=== PATIENT | male | born 1965 | race Caucasian/White ===

== ENCOUNTER 2018-02-07 06:42 | Day surgery (SDC) | payer MEDICARE, OTHER ==
[2018-02-07] MEDS ORDERED: Lactated Ringers 1,000 ML IV SCH (06:45)
[2018-02-07] MEDS ORDERED: Midazolam 1 MG/ML 2 ML SDV IV ONE (08:00)
[2018-02-07] MEDS ORDERED: Propofol 200 MG/20 ML SDV IV ONE (08:00)
--- NOTE | 2018-02-07 08:54 | PCM.OPNOTE ---
- General Post-Op/Procedure Note Date of Surgery/Procedure: 02/07/18 Operative Procedure(s): c scope with bx Findings: 14 colon polyp ascending to sigmoid colon largest number is 6 in ascending colon largest polyp transverse colon Pre Op Diagnosis: occult blood in stool Post-Op Diagnosis: 14 colon polyp ascending to sigmoid colon. largest number is 6 in ascending colon. largest polyp transverse colon Anesthesia Technique: MAC Primary Surgeon: Pillo Varghese Anesthesia Provider: Codey Ventura Pathology: 14 colon polyp ascending to sigmoid colon largest number is 6 in ascending colon largest polyp transverse colon Complications: None Condition: Good Free Text/Narrative:: see dictatin #[id number]
--- NOTE | 2018-02-07 09:46 | OR ---
DATE OF OPERATION: 02/07/2018 SURGEON: Pillo Varghese MD PROCEDURES PERFORMED: Colonoscopy with hot loop and cold forceps biopsy. PREOPERATIVE DIAGNOSES: 1. Positive FIT exam. 2. History of diarrhea. POSTOPERATIVE DIAGNOSES: 14 colon polyps; 7 of the ascending colon, 3 of the transverse colon, 3 of the descending colon, and 1 of the sigmoid. INDICATIONS FOR PROCEDURE: The patient presents with the above-mentioned complaints. He was offered and accepted colonoscopy. DESCRIPTION OF PROCEDURE: After an excellent IV sedation was administered, digital rectal exam was performed. No marked abnormality was noted. The flexible colonoscope was inserted and advanced to the cecum. Prep was excellent. The following findings were noted. Ascending colon, multiple colon polyps, biopsied with the hot loop snare and cold forceps, and submitted in one container. Transverse colon, multiple colon polyps, the largest being a large sessile approximately 1.5 cm in size. These were all biopsied and submitted in one container. Descending colon, multiple colon polyps, biopsied and sent in one container. Sigmoid colon polyps, biopsied and sent in one container. The rectum was unremarkable. The colon was deflated as the scope was removed. The patient tolerated the procedure well and was taken to the recovery room in a good condition. /[id number] /MODL
== END 2018-02-07 09:45 | disposition home or self-care (01) ==
LOC: FB.SDS 06:42
PROVIDERS: ATTEND Surgery
DX: R19.5 Other fecal abnormalities (principal); K52.9 Noninfective gastroenteritis and colitis, unspecified; D12.2 Benign neoplasm of ascending colon; D12.4 Benign neoplasm of descending colon; D12.3 Benign neoplasm of transverse colon; K63.5 Polyp of colon; I11.0 Hypertensive heart disease with heart failure; I50.9 Heart failure, unspecified; J44.9 Chronic obstructive pulmonary disease, unspecified; E11.9 Type 2 diabetes mellitus without complications; E66.9 Obesity, unspecified; Z68.42 Body mass index [BMI] 45.0-49.9, adult; F17.210 Nicotine dependence, cigarettes, uncomplicated; N17.9 Acute kidney failure, unspecified; F32.9 Major depressive disorder, single episode, unspecified; Z83.71 Family history of colonic polyps; Z79.899 Other long term (current) drug therapy; I73.00 Raynaud's syndrome without gangrene; G60.9 Hereditary and idiopathic neuropathy, unspecified; G47.33 Obstructive sleep apnea (adult) (pediatric); Z91.040 Latex allergy status; Z86.73 Personal history of transient ischemic attack (TIA), and cerebral infarction without residual deficits; Z88.8 Allergy status to other drugs, medicaments and biological substances
CPT/HCPCS: 00811-QZ; 88305; J2250; J2704; J7120

== ENCOUNTER 2020-04-23 14:41 | Inpatient (IN) | payer MEDICARE, OTHER ==
[2020-04-23] MEDS ORDERED: Sodium Chloride 0.9% 10 ML Syringe FLUSH PRN (16:01)
[2020-04-23] MEDS: Sodium Chloride 0.9% 1,000 ML IV SCH (16:55)
[2020-04-23] MEDS: Nicotine 21 MG/24 Hr Patch TRDERM SCH (16:55)
[2020-04-23] MEDS ORDERED: 50% Dextrose in Water 50 ML Syringe IVPUSH ONE ×2 (17:18→22:14)
[2020-04-23] MEDS ORDERED: Albuterol 0.083% 2.5 MG/3 ML Neb Soln NEB ONE (17:18)
[2020-04-23] MEDS ORDERED: Calcium Gluconate 10% 1 GM/10 ML SDV IVPUSH ONE (17:18)
[2020-04-23] MEDS ORDERED: Insulin Lispro 100 Unit/ML 3 ML KwikPen SUBCUT ONE ×3 (17:18→22:18)
[2020-04-23] MEDS ORDERED: Triamcinolone Acetonide 0.1% Crm 15 GM Tube TOP PRN (17:20)
[2020-04-23] MEDS ORDERED: Albuterol 8 GM Inhaler INH PRN (17:20)
--- NOTE | 2020-04-23 17:31 | PCM.HP.2 ---
H&P History of Present Illness - General Date of Service: 04/23/20 Admit Problem/Dx: Admission Diagnosis/Problem Admission Diagnosis/Problem Dyspnea Source of Information: Patient, Old Records History Limitations: Reports: No Limitations - History of Present Illness Initial Comments - Free Text/Narative: Yeison is a 54-year-old male was admitted directly from the ambulatory clinic. He was seen complaining of chronic back pain but also admitted to to shortness of breath on mild exertion and nonspecific chest pain intermittently over the last few months. He was thus admitted with suspicion for dehydration,and work up of the exertional chest pain. He does have a history of hypertension, obesity, COPD (probable), tobacco abuse major depression and obstructive sleep apnea on been poorly controlled. He denies fever chills and does not endorse any cough. He takes diuretics, but had an echocardiogram in 2019 that showed a normal ejection fraction and regional wall movements. Lower Back Pain Score (Numeric/FACES): 8 - Related Data Allergies/Adverse Reactions: Allergies Allergy/AdvReac Type Severity Reaction Status Date / Time latex Allergy Hives Verified 04/23/20 15:45 adhesive AdvReac Rash Verified 04/23/20 15:45 naproxen [From Aleve] AdvReac Other Verified 04/23/20 15:45 sertraline [From Zoloft] AdvReac Headache Verified 04/23/20 15:45 Home Medications: Home Meds Albuterol [Proventil HFA] 2 puff INH Q4H PRN 02/06/18 [History] Allopurinol [Zyloprim] 400 mg PO DAILY 02/06/18 [History] Celecoxib [CeleBREX] 200 mg PO DAILY 02/06/18 [History] Cranberry Fruit Extract [Cranberry] 3,500 mg PO BID 02/06/18 [History] Furosemide [Lasix] 40 mg PO BID 02/06/18 [History] Gabapentin [Neurontin] 1,200 mg PO BID 02/06/18 [History] Hydrocodone/Acetaminophen [Mora 10-325 Tablet] 1.5 tab PO Q6H PRN 02/06/18 [History] Metoprolol Tartrate [Lopressor] 100 mg PO BID 02/06/18 [History] Spironolactone [Aldactone] 25 mg PO DAILY 02/06/18 [History] Triamcinolone Acetonide [Kenalog 0.1% Crm] 1 applic TOP TID PRN 02/06/18 [History] buPROPion HCL [Wellbutrin Xl] 300 mg PO DAILY PRN 02/06/18 [History] traZODone 200 mg PO DAILY 02/06/18 [History] amLODIPine [Norvasc] 5 mg PO DAILY@12904/23/20 [History] lisinopriL [Lisinopril] 40 mg PO DAILY@12904/23/20 [History] Past Medical History HEENT History: Reports: Impaired Vision Cardiovascular History: Reports: Hypertension, SOB on Exertion Other Cardiovascular History: RAYNAUDS, EDEMA Respiratory History: Reports: Asthma, COPD, Sleep Apnea Other Respiratory History: CHRONIC AIRWAY OBSTRUCTION, TOBACCO USER Gastrointestinal History: Reports: GERD Genitourinary History: Reports: Renal Disease MATHEMATICAL PHYSICIST History: Reports: None Musculoskeletal History: Reports: Arthritis, Back Pain, Chronic Neurological History: Reports: None Psychiatric History: Reports: Depression Endocrine/Metabolic History: Reports: Obesity/BMI 30+ Hematologic History: Reports: None Immunologic History: Reports: None Oncologic (Cancer) History: Reports: None Dermatologic History: Reports: None - Past Surgical History HEENT Surgical History: Reports: Tonsillectomy GI Surgical History: Reports: Colonoscopy, Hernia Repair/Other Musculoskeletal Surgical History: Reports: Arthroscopic Procedure, Knee Replacement Social & Family History - Family History Family Medical History: Noncontributory - Tobacco Use Smoking Status *Q: Current Every Day Smoker Years of Tobacco use: 38 Packs/Tins Daily: 1.5 - Caffeine Use Caffeine Use: Reports: Coffee, Soda - Recreational Drug Use Recreational Drug Use: No H&P Review of Systems - Review of Systems: Review Of Systems: Comprehensive ROS is negative, except as noted in HPI. Exam - Exam Exam: See Below - Vital Signs Vital Signs: Last Vital Signs Temp 97.5 F 04/23/20 16:01 Pulse 105 H 04/23/20 16:01 Resp 22 H 04/23/20 16:01 BP 98/66 04/23/20 16:01 Pulse Ox 94 L 04/23/20 16:01 Weight: 147.009 kg - Exam General: Alert, Oriented, 4 HEENT: PERRLA, Hearing Intact, Mucosa Moist & [place], Nares Patent, Normal Nasal Septum, Posterior Pharynx Clear, Conjunctiva Clear, EOMI, EACs Clear, TMs Clear Neck: Supple, Trachea Midline, 2 Lungs: Clear to Auscultation, Normal Respiratory Effort Cardiovascular: Regular Rate, Regular Rhythm GI/Abdominal Exam: Distended (Male) Exam: Deferred Rectal (Males) Exam: Deferred Back Exam: Normal Inspection, Full Range of Motion, NT Extremities: Normal Inspection, Normal Range of Motion, Non-Tender, No Pedal Edema, Normal Capillary Refill Skin: Warm, Dry, Intact Neurological: Cranial Nerves Intact, Reflexes Equal Bilateral Neuro Extensive - Mental Status: Alert, Oriented x3, Normal Mood/Affect, Normal Cognition Neuro Extensive - Motor, Sensory, Reflexes: CN II-XII Intact, Normal Gait, Normal Reflexes Psychiatric: Alert, Normal Affect, Normal Mood - Patient Data Lab Results Last 24 hrs: Laboratory Results - last 24 hr 04/23/20 04/23/20 04/23/20 Range/Units 16:15 16:15 16:15 WBC 11.5 (4.5-12.0) X10-3/uL RBC 4.51 (4.30-5.75) x10(6)uL Hgb 14.2 (13.5-17.8) g/dL Hct 43.5 (30.0-51.3) % MCV 96.5 H (80-96) fL MCH 31.4 (27.7-33.6) pg MCHC 32.6 (32.2-35.4) g/dL RDW 12.9 (11.5-15.5) % Plt Count 229 (125-369) X10(3)uL MPV 10.5 H (7.4-10.4) fL Neut % (Auto) 63.4 (46-82) % Lymph % (Auto) 26.2 (13-37) % [place] % (Auto) 7.7 (4-12) % Eos % (Auto) 2 (1.0-5.0) % Baso % (Auto) 1 (0-2) % Neut # (Auto) 7.2 (1.6-8.3) # Lymph # (Auto) 3.0 (0.6-5.0) # [place] # (Auto) 0.9 (0.0-1.3) # Eos # (Auto) 0.3 (0.0-0.8) # Baso # (Auto) 0.1 (0.0-0.2) # D-Dimer, Quantitative (0.0-0.59) mg/LFEU Sodium 134 L (135-145) mmol/L Potassium 6.7 H* (3.5-5.3) mmol/L Chloride 103 (100-110) mmol/L Carbon Dioxide 21 (21-32) mmol/L BUN 91 H (7-18) mg/dL Creatinine 2.7 H* (0.70-1.30) mg/dL Est Cr Clr Drug Dosing 31.28 mL/min Estimated GFR (MDRD) 25 L (>60) BUN/Creatinine Ratio 33.7 H (9-20) Glucose 113 (80-116) mg/dL Calcium 8.4 L (8.6-10.2) mg/dL Total Bilirubin 0.3 (0.1-1.3) mg/dL AST 28 H (5-25) IU/L ALT 36 (12-36) U/L Alkaline Phosphatase 91 (56-112) IU/L Troponin I 7.2 (4.0-60.3) pg/mL Total Protein 7.9 (6.0-8.0) g/dL Albumin 3.9 (3.5-5.2) g/dL Globulin 4.0 g/dL Albumin/Globulin Ratio 1.0 Urine Color (YELLOW) Urine Appearance (CLEAR) Urine pH (5.0-6.5) Ur Specific [place] (1.010-1.025) Urine Protein (NEGATIVE) mg/dL Urine Glucose (UA) (NORMAL) mg/dL Urine Ketones (NEGATIVE) mg/dL Urine Occult Blood (NEGATIVE) Urine Nitrite (NEGATIVE) Urine Bilirubin (NEGATIVE) Urine Urobilinogen (NEGATIVE) mg/dL Ur Leukocyte Esterase (NEGATIVE) Urine RBC (0-5) Urine WBC (0-5) Ur Squamous Epith Cells (NS,R,O) Amorphous Sediment Urine Bacteria (NS) 04/23/20 04/23/20 Range/Units 16:15 16:20 WBC (4.5-12.0) X10-3/uL RBC (4.30-5.75) x10(6)uL Hgb (13.5-17.8) g/dL Hct (30.0-51.3) % MCV (80-96) fL MCH (27.7-33.6) pg MCHC (32.2-35.4) g/dL RDW (11.5-15.5) % Plt Count (125-369) X10(3)uL MPV (7.4-10.4) fL Neut % (Auto) (46-82) % Lymph % (Auto) (13-37) % [place] % (Auto) (4-12) % Eos % (Auto) (1.0-5.0) % Baso % (Auto) (0-2) % Neut # (Auto) (1.6-8.3) # Lymph # (Auto) (0.6-5.0) # [place] # (Auto) (0.0-1.3) # Eos # (Auto) (0.0-0.8) # Baso # (Auto) (0.0-0.2) # D-Dimer, Quantitative 0.34 (0.0-0.59) mg/LFEU Sodium (135-145) mmol/L Potassium (3.5-5.3) mmol/L Chloride (100-110) mmol/L Carbon Dioxide (21-32) mmol/L BUN (7-18) mg/dL Creatinine (0.70-1.30) mg/dL Est Cr Clr Drug Dosing mL/min Estimated GFR (MDRD) (>60) BUN/Creatinine Ratio (9-20) Glucose (80-116) mg/dL Calcium (8.6-10.2) mg/dL Total Bilirubin (0.1-1.3) mg/dL AST (5-25) IU/L ALT (12-36) U/L Alkaline Phosphatase (56-112) IU/L Troponin I (4.0-60.3) pg/mL Total Protein (6.0-8.0) g/dL Albumin (3.5-5.2) g/dL Globulin g/dL Albumin/Globulin Ratio Urine Color Yellow (YELLOW) Urine Appearance Clear (CLEAR) Urine pH 5.0 (5.0-6.5) Ur Specific [place] 1.015 (1.010-1.025) Urine Protein Negative (NEGATIVE) mg/dL Urine Glucose (UA) Normal (NORMAL) mg/dL Urine Ketones Negative (NEGATIVE) mg/dL Urine Occult Blood Negative (NEGATIVE) Urine Nitrite Negative (NEGATIVE) Urine Bilirubin Negative (NEGATIVE) Urine Urobilinogen Normal (NEGATIVE) mg/dL Ur Leukocyte Esterase Negative (NEGATIVE) Urine RBC 0-5 (0-5) Urine WBC 0-5 (0-5) Ur Squamous Epith Cells Occasional (NS,R,O) Amorphous Sediment Few Urine Bacteria Rare H (NS) Result Diagrams: 04/23/20 16:15 04/23/20 16:15 Sepsis Event Note - Evaluation Sepsis Screening Result: No Definite Risk - Focused Exam Vital Signs: Vital Signs Temp Pulse Resp BP Pulse Ox Pulse Ox 04/23/20 16:01 97.5 F 105 H 22 H 98/66 94 L 94 L - Problem List (1) Hyperkalemia SNOMED Code(s): 08866792 ICD Code: E87.5 - HYPERKALEMIA Status: Acute Current Visit: Yes (2) ABBI (acute kidney injury) SNOMED Code(s): 41788453, 53421995 ICD Code: N17.9 - ACUTE KIDNEY FAILURE, UNSPECIFIED Status: Acute Current Visit: Yes (3) HTN (hypertension) SNOMED Code(s): 20156619 ICD Code: I10 - ESSENTIAL (PRIMARY) HYPERTENSION Status: Acute Current Visit: Yes Qualifiers: Hypertension type: essential hypertension Qualified Code(s): I10 - Essential (primary) hypertension (4) Chest pain SNOMED Code(s): 14671158 ICD Code: R07.9 - CHEST PAIN, UNSPECIFIED Status: Acute Current Visit: Yes (5) SOBOE (shortness of breath on exertion) SNOMED Code(s): 45282216 ICD Code: R06.02 - SHORTNESS OF BREATH Status: Acute Current Visit: Yes (6) Obesity SNOMED Code(s): 657499325, 623124182 ICD Code: E66.9 - OBESITY, UNSPECIFIED Status: Acute Current Visit: Yes (7) Chronic lower back pain SNOMED Code(s): 022886543 ICD Code: M54.5 - LOW BACK PAIN; G89.29 - OTHER CHRONIC PAIN Status: Acute Current Visit: Yes Qualifiers: Back pain laterality: bilateral (8) Raynaud phenomenon SNOMED Code(s): 642586383 ICD Code: I73.00 - RAYNAUD'S SYNDROME WITHOUT GANGRENE Status: Acute Current Visit: Yes Qualifiers: Raynaud?s-associated gangrene presence: without gangrene Qualified Code(s): I73.00 - Raynaud's syndrome without gangrene (9) TOBIAS (obstructive sleep apnea) SNOMED Code(s): 78002413 ICD Code: G47.33 - OBSTRUCTIVE SLEEP APNEA (ADULT) (PEDIATRIC) Status: Acute Current Visit: Yes (10) MDD (major depressive disorder) SNOMED Code(s): 279716339 ICD Code: F32.9 - MAJOR DEPRESSIVE DISORDER, SINGLE EPISODE, UNSPECIFIED Status: Chronic Current Visit: Yes Qualifiers: Major depression recurrence: recurrent (11) Tobacco abuse SNOMED Code(s): 261630321 ICD Code: Z72.0 - TOBACCO USE Status: Chronic Current Visit: Yes Problem List Initiated/Reviewed/Updated: Yes Orders Last 24hrs: Active Orders 24 hr Category Date Time Status Patient Status [ADT] Routine ADT 04/23/20 16:01 Active Cardiac Monitoring [RC] QSHIFT Care 04/23/20 16:02 Active EKG Documentation Completion [RC] ASDIRECTED Care 04/23/20 16:03 Active Height and Weight [RC] DAILY Care 04/23/20 16:01 Active Intake and Output [RC] QSHIFT Care 04/23/20 16:02 Active Oxygen Therapy [RC] PRN Care 04/23/20 16:01 Active RT Aerosol Therapy [RC] ASDIRECTED Care 04/23/20 17:19 Ordered RT Post Treatment Assessment [RC] Click to Edit Care 04/23/20 17:21 Ordered Up ad Mercedes [RC] ASDIRECTED Care 04/23/20 16:01 Active VTE/DVT Education [RC] Per Unit Routine Care 04/23/20 16:01 Active Vital Signs [RC] Q4H Care 04/23/20 16:01 Active Regular Diet [DIET] Diet 04/23/20 Dinner Active Chest 2V [CR] Routine Exams 04/23/20 16:01 Taken BASIC METABOLIC PANEL,BMP [CHEM] Stat Lab 04/23/20 20:00 Ordered BASIC METABOLIC PANEL,BMP [CHEM] Stat Lab 04/24/20 05:11 Ordered PRO B-TYPE NATRIUR PEPT,BNPPRO [CHEM] Stat Lab 04/23/20 17:23 Ordered Acetaminophen/HYDROcodone [Mora 325-10 MG] Med 04/23/20 17:20 Ordered 1.5 tab PO Q6H PRN Albuterol [Proventil Neb Soln] Med 04/23/20 17:18 Once 2.5 mg NEB ONETIME ONE Albuterol [Ventolin HFA] Med 04/23/20 17:20 Ordered 2 puff INH Q4H PRN Calcium Gluconate Med 04/23/20 17:18 Once 1 gm IVPUSH ONETIME ONE Celecoxib [CeleBREX] Med 04/24/20 09:00 Ordered 200 mg PO DAILY Cranberry Fruit Extract [Cranberry] Med 04/23/20 21:00 Ordered 3,500 mg PO BID Dextrose 50% in Water Med 04/23/20 17:18 Once 50 ml IVPUSH ONETIME ONE Enoxaparin [Lovenox] Med 04/23/20 17:00 Pending 40 mg SUBCUT Q24H Gabapentin [Neurontin] Med 04/23/20 21:00 Ordered 1,200 mg PO BID Insulin Lispro [HumaLOG] Med 04/23/20 17:18 Once 10 unit SUBCUT ONETIME ONE Metoprolol Tartrate [Lopressor] Med 04/23/20 21:00 Ordered 100 mg PO BID Nicotine [Habitrol] Med 04/23/20 16:00 Active 21 mg TRDERM DAILY@1600 Sodium Chloride 0.9% [Normal Saline] 1,000 ml Med 04/23/20 16:15 Active IV ASDIRECTED Sodium Chloride 0.9% [Saline Flush] Med 04/23/20 16:01 Active 10 ml FLUSH ASDIRECTED PRN Triamcinolone Acetonide [Triamcinolone Acetonide 0.1% Med 04/23/20 17:20 Ordered Crm] 1 applic TOP TID PRN allopurinoL [Zyloprim] Med 04/24/20 09:00 Ordered 400 mg PO DAILY amLODIPine [Norvasc] Med 04/24/20 01:30 Ordered 5 mg PO DAILY@0130 traZODone Med 04/24/20 09:00 Ordered 200 mg PO DAILY Peripheral IV Insertion Adult [OM.PC] Routine Oth 04/23/20 16:01 Ordered Sequential Compression Device [OM.PC] Per Unit Routine Oth 04/23/20 16:02 Ordered Resuscitation Status Routine Resus Stat 04/23/20 16:01 Ordered EKG 12 Lead [EK] Routine Ther 04/23/20 16:01 Ordered Medication Orders Hydrocodone Bitart/Acetaminophen (Mora 325-10 Mg) 1.5 tab PO Q6H PRN PRN Reason: Pain Albuterol (Proventil Neb Soln) 2.5 mg NEB ONETIME ONE Stop: 04/23/20 17:19 Albuterol (Ventolin Hfa) gm INH Q4H PRN PRN Reason: Shortness of Breath Allopurinol (Zyloprim) 400 mg PO DAILY [facility] Amlodipine Besylate (Norvasc) 5 mg PO DAILY@0130 [facility] Calcium Gluconate (Calcium Gluconate) 1 gm IVPUSH ONETIME ONE Stop: 04/23/20 17:19 Celecoxib (Celebrex) 200 mg PO DAILY [facility] Dextrose/Water (Dextrose 50% In Water) 50 ml IVPUSH ONETIME ONE Stop: 04/23/20 17:19 Enoxaparin Sodium (Lovenox) 40 mg SUBCUT Q24H [facility] Gabapentin (Neurontin) 1,200 mg PO BID [facility] Sodium Chloride (Normal Saline) 1,000 mls @ 125 mls/hr IV ASDIRECTED [facility] Last Admin: 04/23/20 16:55 Dose: 125 mls/hr Documented by: JM Insulin Human Lispro (Humalog) 10 unit SUBCUT ONETIME ONE Stop: 04/23/20 17:19 Metoprolol Tartrate (Lopressor) 100 mg PO BID [facility] Nicotine (Habitrol) 21 mg TRDERM DAILY@1600 [facility] Last Admin: 04/23/20 16:55 Dose: 21 mg Documented by: JM Non-Formulary Medication (Cranberry Fruit Extract [Cranberry]) 3,500 mg PO BID [facility] Sodium Chloride (Saline Flush) 10 ml FLUSH ASDIRECTED PRN PRN Reason: Keep Vein Open Trazodone HCl (Trazodone) 200 mg PO DAILY [facility] Triamcinolone Acetonide (Triamcinolone Acetonide 0.1% Crm) gm TOP TID PRN PRN Reason: Rash Assessment/Plan Comment:: I will admit to to the medical floor. I will repeat a basic panel, recheck on the potassium. In the meantime,recommend treatment with calcium gluconate, albuterol, insulin and D50. I will continue to replace IV fluids. His home medications will be continued with the exception of his diuretics and antihypertensives. Troponin, d-dimer BNP are pending as well. I reviewed the EKG today that showed a normal sinus rhythm.
[2020-04-23] MEDS: Enoxaparin 40 MG/0.4 ML Syringe SUBCUT SCH (18:23)
--- NOTE | 2020-04-23 18:26 | CR ---
INDICATION: Short of breath. CHEST, TWO VIEWS: AP and two lateral views of the chest were obtained 04/23/20 and revealed the heart to be enlarged in general. The aorta is slightly calcified in the arch area. Hypertrophic degenerative changes of moderate degree are noted in the mid thoracic spine. Mild dextroconcave scoliosis mid thoracic spine. Evidence of exogenous obesity is noted. Lungs appear to be somewhat hyperaerated with mild flattening of the diaphragm lead from the lateral view. This may be on the basis of COPD but should be correlated clinically. The pulmonary vasculature appears slightly congested raising additional question of mild or early CHF. This should be correlated clinically. Overlying EKG leads are noted. IMPRESSION: 1. ASHD, cardiomegaly with possible mild or early CHF - correlate clinically. 2. Probable COPD - correlate clinically. 3. DJD spine, mild dextroconcave scoliosis mid thoracic spine. 4. Exogenous obesity. MTDD
[2020-04-23] MEDS: Gabapentin 600 MG Tab PO SCH (19:18)
[2020-04-23] MEDS: Acetaminophen/HYDROcodone 325-10 MG Tab PO PRN (19:21)
[2020-04-23] MEDS ORDERED: Metoprolol Tartrate 100 MG Tab PO SCH (21:00)
[2020-04-23] MEDS ORDERED: Gabapentin 600 MG Tab PO SCH (21:00)
[2020-04-23] MEDS ORDERED: TRAZODONE 100 MG PO SCH (21:00)
[2020-04-23] MEDS ORDERED: CRANBERRY FRUIT EXTRACT PO SCH (21:00)
[2020-04-23] MEDS ORDERED: Sodium Bicarbonate 8.4% 50 MEQ/50 ML Syringe IVPUSH ONE (22:19)
[2020-04-24] MEDS ORDERED: amLODIPine 5 MG Tab PO SCH (01:30)
[2020-04-24] MEDS ORDERED: AMLODIPINE 5 MG PO SCH (02:00)
[2020-04-24] MEDS ORDERED: CELECOXIB 200 MG PO SCH (02:00)
[2020-04-24] MEDS ORDERED: ALLOPURINOL 300 MG PO SCH (02:00)
[2020-04-24] MEDS ORDERED: Allopurinol 100 MG Tab*PT OWN MED PO SCH (02:00)
[2020-04-24] MEDS: Gabapentin 600 MG Tab PO SCH ×2 (02:09→14:30)
[2020-04-24] MEDS: Acetaminophen/HYDROcodone 325-10 MG Tab PO PRN (02:26)
[2020-04-24] MEDS: Sodium Chloride 0.9% 1,000 ML IV SCH ×2 (02:30→13:20)
[2020-04-24] MEDS ORDERED: 50% Dextrose in Water 50 ML Syringe IVPUSH ONE (08:06)
[2020-04-24] MEDS ORDERED: Insulin Lispro 100 Unit/ML 3 ML KwikPen SUBCUT ONE (08:07)
[2020-04-24] MEDS ORDERED: Calcium Gluconate 10% 1 GM/10 ML SDV IVPUSH ONE ×2 (08:11→19:02)
[2020-04-24] MEDS ORDERED: Albuterol 0.083% 2.5 MG/3 ML Neb Soln NEB ONE (08:12)
[2020-04-24] MEDS ORDERED: Sodium Chloride 0.9% 1,000 ML IV SCH (08:30)
[2020-04-24] MEDS ORDERED: Insulin Regular, Human 100 Units/ML 3 ML Vial IV ONE (08:57)
[2020-04-24] MEDS ORDERED: Allopurinol 100 MG Tab PO SCH (09:00)
[2020-04-24] MEDS ORDERED: traZODone 100 MG Tab PO SCH (09:00)
[2020-04-24] MEDS ORDERED: Sodium Chloride 23.4% 77 MEQ in Dextrose 10% in Water 500 ML IV SCH ×2 (09:00)
[2020-04-24] MEDS ORDERED: Celecoxib 200 MG Cap PO SCH (09:00)
--- NOTE | 2020-04-24 09:24 | PCM.PN ---
- General Info Date of Service: 04/24/20 Subjective Update: Yeison has no new complaints this morning. Overnight is oxygen was within normal limits. His potassium repeat was 6.6, and he was given another dose of D50 and insulin. His pain in the low back which is chronic is not well controlled. His chest pain is intermittent and nonspecific. Functional Status: Reports: Pain Controlled - Review of Systems General: Reports: No Symptoms Pulmonary: Reports: No Symptoms Cardiovascular: Reports: Chest Pain Gastrointestinal: Reports: No Symptoms Genitourinary: Reports: No Symptoms Musculoskeletal: Reports: Hand Pain, Back Pain Skin: Reports: No Symptoms - Patient Data Vitals - Most Recent: Last Vital Signs Temp 97.5 F 04/24/20 07:30 Pulse 90 04/24/20 07:30 Resp 26 H 04/24/20 07:30 BP 123/59 L 04/24/20 07:30 Pulse Ox 91 L 04/24/20 07:30 Weight - Most Recent: 149.685 kg I&O - Last 24 Hours: Intake & Output 04/23/20 04/24/20 04/24/20 22:59 06:59 14:59 Intake Total 400 Output Total 1000 Balance -600 Lab Results Last 24 Hours: Laboratory Results - last 24 hr 04/23/20 04/23/20 04/23/20 Range/Units 16:15 16:15 16:15 WBC 11.5 (4.5-12.0) X10-3/uL RBC 4.51 (4.30-5.75) x10(6)uL Hgb 14.2 (13.5-17.8) g/dL Hct 43.5 (30.0-51.3) % MCV 96.5 H (80-96) fL MCH 31.4 (27.7-33.6) pg MCHC 32.6 (32.2-35.4) g/dL RDW 12.9 (11.5-15.5) % Plt Count 229 (125-369) X10(3)uL MPV 10.5 H (7.4-10.4) fL Neut % (Auto) 63.4 (46-82) % Lymph % (Auto) 26.2 (13-37) % [place] % (Auto) 7.7 (4-12) % Eos % (Auto) 2 (1.0-5.0) % Baso % (Auto) 1 (0-2) % Neut # (Auto) 7.2 (1.6-8.3) # Lymph # (Auto) 3.0 (0.6-5.0) # [place] # (Auto) 0.9 (0.0-1.3) # Eos # (Auto) 0.3 (0.0-0.8) # Baso # (Auto) 0.1 (0.0-0.2) # D-Dimer, Quantitative (0.0-0.59) mg/LFEU Sodium 134 L (135-145) mmol/L Potassium 6.7 H* (3.5-5.3) mmol/L Chloride 103 (100-110) mmol/L Carbon Dioxide 21 (21-32) mmol/L BUN 91 H (7-18) mg/dL Creatinine 2.7 H* (0.70-1.30) mg/dL Est Cr Clr Drug Dosing 31.28 mL/min Estimated GFR (MDRD) 25 L (>60) BUN/Creatinine Ratio 33.7 H (9-20) Glucose 113 (80-116) mg/dL Calcium 8.4 L (8.6-10.2) mg/dL Total Bilirubin 0.3 (0.1-1.3) mg/dL AST 28 H (5-25) IU/L ALT 36 (12-36) U/L Alkaline Phosphatase 91 (56-112) IU/L Troponin I 7.2 (4.0-60.3) pg/mL NT-Pro-B Natriuret Pep (<=125) pg/mL Total Protein 7.9 (6.0-8.0) g/dL Albumin 3.9 (3.5-5.2) g/dL Globulin 4.0 g/dL Albumin/Globulin Ratio 1.0 Urine Color (YELLOW) Urine Appearance (CLEAR) Urine pH (5.0-6.5) Ur Specific [place] (1.010-1.025) Urine Protein (NEGATIVE) mg/dL Urine Glucose (UA) (NORMAL) mg/dL Urine Ketones (NEGATIVE) mg/dL Urine Occult Blood (NEGATIVE) Urine Nitrite (NEGATIVE) Urine Bilirubin (NEGATIVE) Urine Urobilinogen (NEGATIVE) mg/dL Ur Leukocyte Esterase (NEGATIVE) Urine RBC (0-5) Urine WBC (0-5) Ur Squamous Epith Cells (NS,R,O) Amorphous Sediment Urine Bacteria (NS) SARS Virus RNA (PCR) (NEGATIVE) 04/23/20 04/23/20 04/23/20 Range/Units 16:15 16:15 16:20 WBC (4.5-12.0) X10-3/uL RBC (4.30-5.75) x10(6)uL Hgb (13.5-17.8) g/dL Hct (30.0-51.3) % MCV (80-96) fL MCH (27.7-33.6) pg MCHC (32.2-35.4) g/dL RDW (11.5-15.5) % Plt Count (125-369) X10(3)uL MPV (7.4-10.4) fL Neut % (Auto) (46-82) % Lymph % (Auto) (13-37) % [place] % (Auto) (4-12) % Eos % (Auto) (1.0-5.0) % Baso % (Auto) (0-2) % Neut # (Auto) (1.6-8.3) # Lymph # (Auto) (0.6-5.0) # [place] # (Auto) (0.0-1.3) # Eos # (Auto) (0.0-0.8) # Baso # (Auto) (0.0-0.2) # D-Dimer, Quantitative 0.34 (0.0-0.59) mg/LFEU Sodium (135-145) mmol/L Potassium (3.5-5.3) mmol/L Chloride (100-110) mmol/L Carbon Dioxide (21-32) mmol/L BUN (7-18) mg/dL Creatinine (0.70-1.30) mg/dL Est Cr Clr Drug Dosing mL/min Estimated GFR (MDRD) (>60) BUN/Creatinine Ratio (9-20) Glucose (80-116) mg/dL Calcium (8.6-10.2) mg/dL Total Bilirubin (0.1-1.3) mg/dL AST (5-25) IU/L ALT (12-36) U/L Alkaline Phosphatase (56-112) IU/L Troponin I (4.0-60.3) pg/mL NT-Pro-B Natriuret Pep 59 (<=125) pg/mL Total Protein (6.0-8.0) g/dL Albumin (3.5-5.2) g/dL Globulin g/dL Albumin/Globulin Ratio Urine Color Yellow (YELLOW) Urine Appearance Clear (CLEAR) Urine pH 5.0 (5.0-6.5) Ur Specific [place] 1.015 (1.010-1.025) Urine Protein Negative (NEGATIVE) mg/dL Urine Glucose (UA) Normal (NORMAL) mg/dL Urine Ketones Negative (NEGATIVE) mg/dL Urine Occult Blood Negative (NEGATIVE) Urine Nitrite Negative (NEGATIVE) Urine Bilirubin Negative (NEGATIVE) Urine Urobilinogen Normal (NEGATIVE) mg/dL Ur Leukocyte Esterase Negative (NEGATIVE) Urine RBC 0-5 (0-5) Urine WBC 0-5 (0-5) Ur Squamous Epith Cells Occasional (NS,R,O) Amorphous Sediment Few Urine Bacteria Rare H (NS) SARS Virus RNA (PCR) (NEGATIVE) 04/23/20 04/23/20 04/23/20 Range/Units 20:00 20:10 23:25 WBC (4.5-12.0) X10-3/uL RBC (4.30-5.75) x10(6)uL Hgb (13.5-17.8) g/dL Hct (30.0-51.3) % MCV (80-96) fL MCH (27.7-33.6) pg MCHC (32.2-35.4) g/dL RDW (11.5-15.5) % Plt Count (125-369) X10(3)uL MPV (7.4-10.4) fL Neut % (Auto) (46-82) % Lymph % (Auto) (13-37) % [place] % (Auto) (4-12) % Eos % (Auto) (1.0-5.0) % Baso % (Auto) (0-2) % Neut # (Auto) (1.6-8.3) # Lymph # (Auto) (0.6-5.0) # [place] # (Auto) (0.0-1.3) # Eos # (Auto) (0.0-0.8) # Baso # (Auto) (0.0-0.2) # D-Dimer, Quantitative (0.0-0.59) mg/LFEU Sodium 134 L 133 L (135-145) mmol/L Potassium 6.0 H 6.6 H* (3.5-5.3) mmol/L Chloride 103 103 (100-110) mmol/L Carbon Dioxide 21 21 (21-32) mmol/L BUN 86 H 89 H (7-18) mg/dL Creatinine 2.8 H* 2.7 H* (0.70-1.30) mg/dL Est Cr Clr Drug Dosing 30.16 31.28 mL/min Estimated GFR (MDRD) 24 L 25 L (>60) BUN/Creatinine Ratio 30.7 H 33.0 H (9-20) Glucose 205 H D 190 H (80-116) mg/dL Calcium 8.2 L 8.3 L (8.6-10.2) mg/dL Total Bilirubin (0.1-1.3) mg/dL AST (5-25) IU/L ALT (12-36) U/L Alkaline Phosphatase (56-112) IU/L Troponin I (4.0-60.3) pg/mL NT-Pro-B Natriuret Pep (<=125) pg/mL Total Protein (6.0-8.0) g/dL Albumin (3.5-5.2) g/dL Globulin g/dL Albumin/Globulin Ratio Urine Color (YELLOW) Urine Appearance (CLEAR) Urine pH (5.0-6.5) Ur Specific [place] (1.010-1.025) Urine Protein (NEGATIVE) mg/dL Urine Glucose (UA) (NORMAL) mg/dL Urine Ketones (NEGATIVE) mg/dL Urine Occult Blood (NEGATIVE) Urine Nitrite (NEGATIVE) Urine Bilirubin (NEGATIVE) Urine Urobilinogen (NEGATIVE) mg/dL Ur Leukocyte Esterase (NEGATIVE) Urine RBC (0-5) Urine WBC (0-5) Ur Squamous Epith Cells (NS,R,O) Amorphous Sediment Urine Bacteria (NS) SARS Virus RNA (PCR) Negative (NEGATIVE) 04/24/20 Range/Units 06:53 WBC (4.5-12.0) X10-3/uL RBC (4.30-5.75) x10(6)uL Hgb (13.5-17.8) g/dL Hct (30.0-51.3) % MCV (80-96) fL MCH (27.7-33.6) pg MCHC (32.2-35.4) g/dL RDW (11.5-15.5) % Plt Count (125-369) X10(3)uL MPV (7.4-10.4) fL Neut % (Auto) (46-82) % Lymph % (Auto) (13-37) % [place] % (Auto) (4-12) % Eos % (Auto) (1.0-5.0) % Baso % (Auto) (0-2) % Neut # (Auto) (1.6-8.3) # Lymph # (Auto) (0.6-5.0) # [place] # (Auto) (0.0-1.3) # Eos # (Auto) (0.0-0.8) # Baso # (Auto) (0.0-0.2) # D-Dimer, Quantitative (0.0-0.59) mg/LFEU Sodium 134 L (135-145) mmol/L Potassium 7.0 H* (3.5-5.3) mmol/L Chloride 104 (100-110) mmol/L Carbon Dioxide 22 (21-32) mmol/L BUN 82 H (7-18) mg/dL Creatinine 2.7 H* (0.70-1.30) mg/dL Est Cr Clr Drug Dosing 31.28 mL/min Estimated GFR (MDRD) 25 L (>60) BUN/Creatinine Ratio 30.4 H (9-20) Glucose 101 D (80-116) mg/dL Calcium 8.1 L (8.6-10.2) mg/dL Total Bilirubin (0.1-1.3) mg/dL AST (5-25) IU/L ALT (12-36) U/L Alkaline Phosphatase (56-112) IU/L Troponin I (4.0-60.3) pg/mL NT-Pro-B Natriuret Pep (<=125) pg/mL Total Protein (6.0-8.0) g/dL Albumin (3.5-5.2) g/dL Globulin g/dL Albumin/Globulin Ratio Urine Color (YELLOW) Urine Appearance (CLEAR) Urine pH (5.0-6.5) Ur Specific [place] (1.010-1.025) Urine Protein (NEGATIVE) mg/dL Urine Glucose (UA) (NORMAL) mg/dL Urine Ketones (NEGATIVE) mg/dL Urine Occult Blood (NEGATIVE) Urine Nitrite (NEGATIVE) Urine Bilirubin (NEGATIVE) Urine Urobilinogen (NEGATIVE) mg/dL Ur Leukocyte Esterase (NEGATIVE) Urine RBC (0-5) Urine WBC (0-5) Ur Squamous Epith Cells (NS,R,O) Amorphous Sediment Urine Bacteria (NS) SARS Virus RNA (PCR) (NEGATIVE) Med Orders - Current: Current Medications Hydrocodone Bitart/Acetaminophen ([place] 325-5 Mg) 1 tab PO Q4H PRN PRN Reason: Breakthrough Pain Albuterol (Ventolin Hfa) gm INH Q4H PRN PRN Reason: Shortness of Breath Allopurinol (Zyloprim) 100 mg PO DAILY@0200 [facility] Last Admin: 04/24/20 02:10 Dose: 100 mg Documented by: Allopurinol (Zyloprim) 300 mg PO DAILY@0200 [facility] Last Admin: 04/24/20 02:11 Dose: 300 mg Documented by: Amlodipine Besylate (Norvasc) 5 mg PO DAILY@0200 [facility] Last Admin: 04/24/20 02:10 Dose: 5 mg Documented by: Enoxaparin Sodium (Lovenox) 40 mg SUBCUT Q24H [facility] Last Admin: 04/23/20 18:23 Dose: 40 mg Documented by: Gabapentin (Neurontin) 1,200 mg PO BID@199,1400 [facility] Last Admin: 04/24/20 02:09 Dose: 1,200 mg Documented by: Sodium Chloride (Normal Saline) 1,000 mls @ 125 mls/hr IV ASDIRECTED [facility] Last Admin: 04/24/20 02:30 Dose: 125 mls/hr Documented by: Sodium Chloride (Normal Saline) 1,000 mls @ 999 mls/hr IV ASDIRECTED [facility] Last Admin: 04/24/20 08:25 Dose: 999 mls/hr Documented by: Sodium Chloride 77 meq/ (Dextrose/Water) 519.25 mls @ 500 mls/hr IV ASDIRECTED [facility] Metoprolol Tartrate (Lopressor) 100 mg PO BID@0200,1400 [facility] Last Admin: 04/24/20 02:09 Dose: 100 mg Documented by: Nicotine (Habitrol) 21 mg TRDERM DAILY@1600 [facility] Last Admin: 04/23/20 16:55 Dose: 21 mg Documented by: Non-Formulary Medication (Cranberry Fruit Extract [Cranberry]) 3,500 mg PO BID [facility] Sodium Chloride (Saline Flush) 10 ml FLUSH ASDIRECTED PRN PRN Reason: Keep Vein Open Trazodone HCl (Trazodone) 200 mg PO BEDTIME [facility] Last Admin: 04/23/20 20:04 Dose: 200 mg Documented by: Triamcinolone Acetonide (Triamcinolone Acetonide 0.1% Crm) gm TOP TID PRN PRN Reason: Rash Discontinued Medications Hydrocodone Bitart/Acetaminophen ([place] 325-10 Mg) 1.5 tab PO Q6H PRN PRN Reason: Pain Last Admin: 04/24/20 02:26 Dose: 1.5 tab Documented by: Albuterol (Proventil Neb Soln) 2.5 mg NEB ONETIME ONE Stop: 04/23/20 17:19 Last Admin: 04/23/20 18:14 Dose: 2.5 mg Documented by: Albuterol (Proventil Neb Soln) 2.5 mg NEB ONETIME ONE Stop: 04/24/20 08:13 Last Admin: 04/24/20 08:26 Dose: 2.5 mg Documented by: Allopurinol (Zyloprim) 400 mg PO DAILY [facility] Amlodipine Besylate (Norvasc) 5 mg PO DAILY@0130 [facility] Calcium Gluconate (Calcium Gluconate) 1 gm IVPUSH ONETIME ONE Stop: 04/23/20 17:19 Last Admin: 04/23/20 18:17 Dose: 1 gm Documented by: Calcium Gluconate (Calcium Gluconate) 1 gm IVPUSH ONETIME ONE Stop: 04/24/20 08:12 Last Admin: 04/24/20 08:26 Dose: 1 gm Documented by: Celecoxib (Celebrex) 200 mg PO DAILY [facility] Celecoxib (Celebrex) 200 mg PO DAILY@0200 [facility] Last Admin: 04/24/20 02:08 Dose: 200 mg Documented by: Dextrose/Water (Dextrose 50% In Water) 50 ml IVPUSH ONETIME ONE Stop: 04/23/20 17:19 Last Admin: 04/23/20 18:26 Dose: 50 ml Documented by: Dextrose/Water (Dextrose 50% In Water) 50 ml IVPUSH ONETIME ONE Stop: 04/23/20 22:15 Last Admin: 04/23/20 22:36 Dose: 50 ml Documented by: Dextrose/Water (Dextrose 50% In Water) 50 ml IVPUSH ONETIME ONE Stop: 04/24/20 08:07 Last Admin: 04/24/20 08:26 Dose: 50 ml Documented by: Gabapentin (Neurontin) 1,200 mg PO BID NOHEMI Insulin Human Lispro (Humalog) 10 unit SUBCUT ONETIME ONE Stop: 04/23/20 17:19 Last Admin: 04/23/20 18:21 Dose: 10 units Documented by: Insulin Human Lispro (Humalog) 20 unit SUBCUT ONETIME ONE Stop: 04/23/20 22:19 Last Admin: 04/23/20 22:49 Dose: 20 units Documented by: Insulin Human Lispro (Humalog) 10 unit SUBCUT ONETIME ONE Stop: 04/24/20 08:08 Last Admin: 04/24/20 08:58 Dose: 10 units Documented by: Insulin Human Regular (Humulin R) 10 unit IV ONETIME ONE Stop: 04/24/20 08:58 Metoprolol Tartrate (Lopressor) 100 mg PO BID [facility] Non-Formulary Medication (Cranberry Fruit Extract [Cranberry]) 3,500 mg PO BID [facility] Sodium Bicarbonate (Sodium Bicarbonate 8.4%) 50 meq IVPUSH ONETIME ONE Stop: 04/23/20 22:20 Last Admin: 04/23/20 22:55 Dose: 50 meq Documented by: Trazodone HCl (Trazodone) 200 mg PO DAILY NOHEMI - Exam General: Alert, Oriented HEENT: Pupils Equal Neck: Supple Lungs: Clear to Auscultation Cardiovascular: Regular Rate, Regular Rhythm GI/Abdominal Exam: Normal Bowel Sounds (Male) Exam: No Hernia EKG INTERPRETATION Rhythm: NSR Sepsis Event Note - Evaluation Sepsis Screening Result: No Definite Risk - Focused Exam Vital Signs: Vital Signs Temp Pulse Pulse Resp BP BP Pulse Ox 04/24/20 07:30 97.5 F 90 26 H 123/59 L 91 L 04/24/20 04:00 97.8 F 59 L 18 94/55 L 92 L 04/24/20 02:10 122/71 04/24/20 02:09 71 122/04/24/20 00:01 97.5 F 71 20 117/65 92 L - Problem List & Annotations (1) Hyperkalemia SNOMED Code(s): 80771129 Code(s): E87.5 - HYPERKALEMIA Status: Acute Current Visit: Yes (2) ABBI (acute kidney injury) SNOMED Code(s): 65962992, 57784757 Code(s): N17.9 - ACUTE KIDNEY FAILURE, UNSPECIFIED Status: Acute Current Visit: Yes (3) HTN (hypertension) SNOMED Code(s): 69990546 Code(s): I10 - ESSENTIAL (PRIMARY) HYPERTENSION Status: Acute Current Visit: Yes Qualifiers: Hypertension type: essential hypertension Qualified Code(s): I10 - Essential (primary) hypertension (4) Chest pain SNOMED Code(s): 66664755 Code(s): R07.9 - CHEST PAIN, UNSPECIFIED Status: Acute Current Visit: Yes (5) SOBOE (shortness of breath on exertion) SNOMED Code(s): 53529278 Code(s): R06.02 - SHORTNESS OF BREATH Status: Acute Current Visit: Yes (6) Obesity SNOMED Code(s): 589860614, 156661147 Code(s): E66.9 - OBESITY, UNSPECIFIED Status: Acute Current Visit: Yes (7) Chronic lower back pain SNOMED Code(s): 393655500 Code(s): M54.5 - LOW BACK PAIN; G89.29 - OTHER CHRONIC PAIN Status: Acute Current Visit: Yes Qualifiers: Back pain laterality: bilateral (8) Raynaud phenomenon SNOMED Code(s): 157421601 Code(s): I73.00 - RAYNAUD'S SYNDROME WITHOUT GANGRENE Status: Acute Current Visit: Yes Qualifiers: Raynaud?s-associated gangrene presence: without gangrene Qualified Code(s): I73.00 - Raynaud's syndrome without gangrene (9) TOBIAS (obstructive sleep apnea) SNOMED Code(s): 98131548 Code(s): G47.33 - OBSTRUCTIVE SLEEP APNEA (ADULT) (PEDIATRIC) Status: Acute Current Visit: Yes (10) MDD (major depressive disorder) SNOMED Code(s): 845685045 Code(s): F32.9 - MAJOR DEPRESSIVE DISORDER, SINGLE EPISODE, UNSPECIFIED Status: Chronic Current Visit: Yes Qualifiers: Major depression recurrence: recurrent (11) Tobacco abuse SNOMED Code(s): 876791328 Code(s): Z72.0 - TOBACCO USE Status: Chronic Current Visit: Yes - Problem List Review Problem List Initiated/Reviewed/Updated: Yes - My Orders Last 24 Hours: My Active Orders 04/23/20 17:19 RT Aerosol Therapy [RC] ASDIRECTED 04/23/20 17:20 Albuterol [Ventolin HFA] DOSE gm INH Q4H PRN Triamcinolone Acetonide [Triamcinolone Acetonide 0.1% Crm] DOSE gm TOP TID PRN 04/23/20 17:21 RT Post Treatment Assessment [RC] Click to Edit 04/23/20 18:45 Metoprolol Tartrate [Lopressor] 100 mg PO BID@0200,1400 04/23/20 19:00 Gabapentin [Neurontin] 1,200 mg PO BID@0200,1400 04/23/20 21:00 traZODone 200 mg PO BEDTIME 04/24/20 02:00 Cranberry Fruit Extract [Cranberry] 3,500 mg PO BID allopurinoL [Zyloprim] 100 mg PO DAILY@0200 allopurinoL [Zyloprim] 300 mg PO DAILY@0200 amLODIPine [Norvasc] 5 mg PO DAILY@0200 04/24/20 08:10 EKG 12 Lead [EK] Routine 04/24/20 08:11 EKG Documentation Completion [RC] ASDIRECTED 04/24/20 08:12 RT Aerosol Therapy [RC] ASDIRECTED 04/24/20 08:30 Sodium Chloride 0.9% [Normal Saline] 1,000 ml IV ASDIRECTED 04/24/20 08:56 Accu Check [Blood Glucose Check, Bedside] [RC] Q1H 04/24/20 09:00 Acetaminophen/HYDROcodone [[place] 325-5 MG] 1 tab PO Q4H PRN Sodium Chloride 23.4% 77 meq Dextrose 10% in Water 500 ml IV ASDIRECTED 04/24/20 11:59 BASIC METABOLIC PANEL,BMP [CHEM] Routine - Plan Plan:: I will admit to ICU. I will give him Cardizem gluconate, insulin, and increase his IV fluids. I'll repeat is potassium at noon and evicted up consider transfer to [facility] for dialysis
[2020-04-24] MEDS: Insulin Regular, Human 100 Units/ML 3 ML Vial IV ONE ×2 (11:56→11:59)
[2020-04-24] MEDS ORDERED: HUMAN IV SCH ×2 (12:00)
[2020-04-24] MEDS ORDERED: DEXTROSE IV SCH ×2 (12:00)
[2020-04-24] MEDS ORDERED: INSULIN REGULAR IV SCH ×2 (12:00)
[2020-04-24] MEDS ORDERED: NACL IV SCH ×2 (12:00)
[2020-04-24] MEDS: Acetaminophen/HYDROcodone 325-5 MG Tab PO PRN ×2 (12:55→17:13)
[2020-04-24] MEDS: 50% Dextrose in Water 50 ML Syringe IVPUSH SCH ×4 (14:26→22:54)
[2020-04-24] MEDS: Insulin Lispro 100 Unit/ML 3 ML KwikPen SUBCUT SCH ×4 (14:31→23:31)
[2020-04-24] MEDS: Nicotine 21 MG/24 Hr Patch TRDERM SCH (16:18)
[2020-04-24] MEDS: Enoxaparin 40 MG/0.4 ML Syringe SUBCUT SCH (17:14)
[2020-04-24] MEDS ORDERED: Sodium Polystyrene Sulfonate 15 GM/60 ML Susp 60 ML Bot PO ONE (19:02)
[2020-04-24] MEDS ORDERED: Furosemide 40 MG/4 ML VIAL IVPUSH ONE (19:02)
[2020-04-24] MEDS: CRANBERRY FRUIT EXTRACT PO SCH (23:33)
--- NOTE | 2020-04-26 08:57 | DISCH ---
DISCHARGE DATE: 04/24/2020 REASON FOR ADMISSION: 1. Chest pain. 2. Dehydration. 3. Chronic back pain. 4. Obstructive sleep apnea. 5. Obesity. TRANSFER DIAGNOSES: 1. Acute kidney injury. 2. Hyperkalemia. 3. Chronic back pain. 4. Intermittent chest pain. 5. Hypertension. BRIEF HISTORY: A 54-year-old male was admitted for lethargy, weakness, thought of dehydration, was found to be in ABBI. He also had a potassium 6.6, given some fluids, he is making good urine. However, his potassium has continued to rise, despite multiple interventions including D15 and calcium gluconate, albuterol and insulin. I spoke with the drill instructor and hospitalist at [facility], and I will transfer him for higher level of care. I spent more than 35 minutes in the transfer. /[id number] [place]
== END 2020-04-24 20:45 | disposition other institution (70) | DRG 683 ==
LOC: FB.MS 15:22 → OBSVTOIN 04-24 08:40 → FB.ICU 04-24 08:41
PROVIDERS: ADMIT Family Medicine; ATTEND Family Medicine
DX: R06.02 Shortness of breath (principal); N17.9 Acute kidney failure, unspecified; F33.9 Major depressive disorder, recurrent, unspecified; Z68.42 Body mass index [BMI] 45.0-49.9, adult; E87.5 Hyperkalemia; M54.9 Dorsalgia, unspecified; G89.29 Other chronic pain; I10 Essential (primary) hypertension; R07.9 Chest pain, unspecified; F32.9 Major depressive disorder, single episode, unspecified; H54.7 Unspecified visual loss; E86.0 Dehydration; J44.9 Chronic obstructive pulmonary disease, unspecified; M19.90 Unspecified osteoarthritis, unspecified site; G47.33 Obstructive sleep apnea (adult) (pediatric); Z20.828 Contact with and (suspected) exposure to other viral communicable diseases; E66.9 Obesity, unspecified; K21.9 Gastro-esophageal reflux disease without esophagitis; Z88.6 Allergy status to analgesic agent; Z96.659 Presence of unspecified artificial knee joint; F17.200 Nicotine dependence, unspecified, uncomplicated; Z91.048 Other nonmedicinal substance allergy status; M54.5 Low back pain; I73.00 Raynaud's syndrome without gangrene; Z91.040 Latex allergy status; Z91.09 Other allergy status, other than to drugs and biological substances; Z88.8 Allergy status to other drugs, medicaments and biological substances; Z79.899 Other long term (current) drug therapy
CPT/HCPCS: 36415 ×2; 71046; 80048 ×3; 80053; 81001; 83880; 84484; 85025; 85379; 93005 ×2; 94640; A9270 ×12; J0610 ×2; J1650; J1815 ×4; J7030 ×3; U0002; 82962; 96361; 96372; 96374; 96375; 96376; G0378; G0379; J1940